=== PATIENT | male | born 2000 | race Caucasian/White ===

== ENCOUNTER 2022-06-21 16:45 | Outpatient (RCR) | payer OTHER, SELFPAY | END 2022-08-30 09:24 | disposition home or self-care (01) | PROVIDERS: PCP Student in an Organized Health Care Education/Training Program; Visit Provider Student in an Organized Health Care Education/Training Program | DX: M92.523 Juvenile osteochondrosis of tibia tubercle, bilateral (principal); M25.561 Pain in right knee; M25.562 Pain in left knee; M62.81 Muscle weakness (generalized); Z51.89 Encounter for other specified aftercare | CPT/HCPCS: 97110; 97161 ==